=== PATIENT | female | born 1985 | race Caucasian/White ===

== ENCOUNTER 2017-11-28 23:23 | Emergency (ER) | payer MEDICAID ==
[2017-11-28 23:32] VITALS: O2SAT 96
[2017-11-29] MEDS ORDERED: NITROFURANTOIN MACROBID 100 MG CAP PO ONE (00:27)
[2017-11-29] MEDS ORDERED: NITROFURANTOIN 100MG PREPACK#2 BTL TAKEHOME ONE (00:27)
[2017-11-29] MEDS ORDERED: PHENAZOPYRIDINE HCL 200 MG TAB PO ONE (00:27)
--- NOTE | 2017-11-29 00:29 | EDPHY ---
H & P Stated Complaint: pt says blood in urine today, pain with urination starting tonight Time Seen by Provider: 11/28/17 23:54 HPI/ROS: HPI The patient presents with hematuria, dysuria, frequency and urgency which began several hours ago. Symptoms started suddenly and have been constant ever since. She is feeling hot and cold flashes, though does not have a fever. She last had a urinary tract infection over 10 years ago. She denies any back pain , nausea or vomiting.. REVIEW OF SYSTEMS Constitutional: No fever, no chills. Eyes: No discharge. ENT: No sore throat. Cardiovascular: No chest pain, no palpitations. Respiratory: No cough, no shortness of breath. Gastrointestinal: No abdominal pain, no vomiting. Genitourinary: No hematuria. Musculoskeletal: No back pain. Skin: No rashes. Neurological: No headache. PMHx: Healthy, recent skin infection, took a course of ciprofloxacin she believes, finished this 1.5 weeks ago Soc Hx: Student PHYSICAL General Appearance: Alert, no distress Eyes: Pupils equal and round no pallor or injection ENT, Mouth: Mucous membranes moist Respiratory: There are no retractions, lungs are clear to auscultation Cardiovascular: Regular rate and rhythm Gastrointestinal: Abdomen is soft and non-tender, no masses, bowel sounds normal Neurological: A&O, moves all extremities Skin: Warm and dry, no rashes Musculoskeletal: Neck is supple non tender Extremities: symmetrical, full range of motion Psychiatric: Patient is oriented X 3, there is no agitation Source: Patient Exam Limitations: No limitations - Medical/Surgical History Hx Asthma: No Hx Chronic Respiratory Disease: No Hx Diabetes: No Hx Cardiac Disease: No Hx Renal Disease: No Hx Cirrhosis: No Hx Alcoholism: No Hx HIV/AIDS: No Hx Splenectomy or Spleen Trauma: No Other PMH: hypothyroid - Social History Smoking Status: Never smoked Constitutional: Initial Vital Signs Temperature (C) 36.9 C 11/28/17 23:26 Heart Rate 76 11/28/17 23:26 Respiratory Rate 16 11/28/17 23:26 Blood Pressure 143/81 H 11/28/17 23:26 O2 Sat (%) 96 11/28/17 23:26 O2 Delivery Mode Room Air Allergies/Adverse Reactions: Penicillins Allergy (Verified 11/28/17 23:31) tree nut Allergy (Verified 11/28/17 23:31) wheat Allergy (Verified 11/28/17 23:31) tree fruit Allergy (Uncoded 11/28/17 23:31) Home Medications: Medication Instructions Recorded Levothyroxine 11/28/17 Nitrofurantoin Monohyd/M-Cryst 100 mg PO BID 5 Days #10 capsule 11/29/17 [Macrobid 100 mg Capsule] Phenazopyridine HCl [Pyridium] 200 mg PO TID #6 tab 11/29/17 Medical Decision Making Differential Diagnosis: 31-year-old female, several hours of irritative voiding symptoms associated with hematuria. Differential diagnosis includes hemorrhagic cystitis, pyelonephritis, nephrolithiasis. Given no flank tenderness or pain, no vomiting, I feel hemorrhagic cystitis is most likely. UA was obtained showing leukocyte esterase, both red and white blood cells. I will treat her with Macrobid and Pyridium. Urine culture was sent. - Data Points Laboratory Results: 11/28/17 23:58 Urine Color RED Urine Appearance MODERATELY TURBID Urine pH 6.0 (5.0-7.5) Ur Specific [place] 1.018 (1.002-1.030) Urine Protein 2+ H (NEGATIVE) Urine Ketones NEGATIVE (NEGATIVE) Urine Blood 3+ H (NEGATIVE) Urine Nitrate NEGATIVE (NEGATIVE) Urine Bilirubin NEGATIVE (NEGATIVE) Urine Urobilinogen NEGATIVE EU EU (0.2-1.0) Ur Leukocyte Esterase 2+ H (NEGATIVE) Urine RBC 50-182 /hpf H /hpf (0-3) Urine WBC 50-182 /hpf H /hpf (0-3) Ur Epithelial Cells 1+ /lpf /lpf (NONE-1+) Urine Mucus 2+ /lpf H /lpf (NONE-1+) Urine Glucose NEGATIVE (NEGATIVE) Departure - Departure Disposition: Home, Routine, Self-Care Clinical Impression: Urinary tract infection Condition: Good Instructions: Urinary Tract Infection in Women (ED) Additional Instructions: Please make sure to drink plenty of fluids. You should return to the emergency department if your worse in any way. We have sent a urine off for culture testing and if it grows a different bacteria and the antibiotic treats, we will call you. Referrals: [facility] [Other] - As per Instructions Prescriptions: Nitrofurantoin Monohyd/M-Cryst [Macrobid 100 mg Capsule] 100 mg PO BID 5 Days # 10 capsule Phenazopyridine HCl [Pyridium] 200 mg PO TID #6 tab
[2017-11-29 00:41] VITALS: BP 137/76; PULSE 81; RESP 18; TEMP 98.1
== END 2017-11-29 00:40 | disposition home or self-care (01) ==
DX: N39.0 Urinary tract infection, site not specified (principal); B96.20 Unspecified Escherichia coli [E. coli] as the cause of diseases classified elsewhere